=== PATIENT | female | born 1990 | race Caucasian/White ===

== ENCOUNTER 2016-05-05 04:38 | Inpatient (IN) | payer OTHER ==
--- OUTSIDE RECORDS SUMMARY | 2016-05-05 04:48 | XMS REPORT | Continuity of Care Document ---
:1990 Author Organization [facility] ([facility]) [place] [address] Phone [phone] Care Team Providers Name Role Phone [phone], Need To Check Primary Care Provider Unavailable Source Comments This disclosure is being made pursuant to the Care Everywhere program, applicable federal and state laws, and may not contain all informaitonavailable regarding this patient.[facility] ([facility]) Active Allergies and Adverse Reactions Allergen Noted Date Severity Reactions Comments Penicillin 07/17/2015 Rash Current Medications Prescription Sig. Disp. Refills Start Date End Date Status HYDROcodone-acetamin Take 1 tablet by 20 tablet 0 07/17/2015 Active ophen 5-325 mg per mouth every 4 hours tablet as needed for Pain. DO NOT EXCEED 3,000 MG ACETAMINOPHEN PER DAY FROM ALL SOURCES ibuprofen 800 mg Take 1 tablet (800 20 tablet 0 07/17/2015 Active tablet mg total) by mouth every 6 hours as needed for Pain. DO NOT EXCEED 3,200 MG IBUPROFEN PER DAY FROM ALL SOURCES chlorhexidine 0.12 % Rinse with 10 ML for 473 mL 0 07/17/2015 Active oral rinse 30 seconds twice daily for 10 days. Swish and spit out excess. Nothing by mouth for 30 minutes. Active Problems Problem Noted Date Dental caries 07/17/2015 Social History Tobacco Use Types Packs/Day Years Used Date Current Every Day Smoker Cigarettes 0.5 6 Alcohol Use Drinks/Week oz/Week Comments Yes social occassions Last Filed Vital Signs Vital Sign Reading Time Taken Blood Pressure 120/65 07/17/2015 11:43 AM CDT Pulse 60 07/17/2015 11:43 AM CDT Temperature 36.7 C (98.1 F) 07/17/2015 10:47 AM CDT Respiratory Rate 22 07/17/2015 10:47 AM CDT Height 1.651 m (5' 5") 07/17/2015 10:47 AM CDT Weight 98 kg (216 lb 0.8 oz) 07/17/2015 10:47 AM CDT Body Mass Index 35.95 07/17/2015 10:47 AM CDT Oxygen Saturation 100% 07/17/2015 11:43 AM CDT Plan of Care Health Maintenance Due Date Last Done Comments Hepatitis B Vaccine (1 of 3 - Primary Series) 1990 HPV Vaccine (1 of 3 - Female/Unknown 3 Dose Series) 2001 Tdap Vaccine 2001 Cervical Cancer Screening 2008 Lipid Disorder Screening 2008 MMR Vaccine 2008 Td Vaccine 2008 Varicella Vaccine (1 of 2 - Adult - No Evidence of 2008 Immunity) Pneumococcal Vaccine (1 of 1 - PPSV23) 2009 Influenza Vaccine: Seasonal (#1) 09/15/2015 Results from Last 3 Months Not on file
[2016-05-05] MEDS ORDERED: DEXTROSE 5%-LACTATED RINGERS 1,000 ML IV PRN (04:58)
[2016-05-05] MEDS ORDERED: OXYTOCIN/DEXTROSE 5%-WATER 30 UNITS/500 ML BAG IV ONE ×2 (04:58→06:08)
[2016-05-05] MEDS ORDERED: LIDOCAINE HCL 50 ML VIAL PERI PRN (04:58)
--- OUTSIDE RECORDS SUMMARY | 2016-05-05 05:04 | XMS REPORT | Continuity of Care Document ---
:1990 Author Organization [facility] ([facility]) [place] [address] Phone [phone] Care Team Providers Name Role Phone [phone], Need To Check Primary Care Provider Unavailable Source Comments This disclosure is being made pursuant to the Care Everywhere program, applicable federal and state laws, and may not contain all informaitonavailable regarding this patient.[facility] ([facility]) Active Allergies and Adverse Reactions Allergen [...]
--- NOTE | 2016-05-05 06:03 | OR ---
Operative Report - Dictated Report Narrative: Spontaneous vaginal delivery of viable female at 0532 on 05/05/2016 in WOODY position with Apgars 9 and 9, weighing 2999 g with shoulder and body cord 1. Cord clamping delayed 1 minute. Placenta delivered complete, intact, with three vessel cord Estimated blood loss: 100 mL Lacerations: Second-degree vaginal laceration repaired with 3-0 Vicryl Rapide under local anesthesia using a total of 10 mL of 1% lidocaine plain. History for MU Definition: * The number of deliveries resulting in a live the patient experienced prior to current hospitalization * The previous delivery of live twins or any live multiple gestation is considered one live event. *If primagravida or nulliparous is documented select zero for the number of previous live births. Live Events: 1
[2016-05-05] MEDS ORDERED: BENZOCAINE/MENTHOL 81 SPRAY CAN TP PRN (06:08)
[2016-05-05] MEDS ORDERED: oxyCODONE HCL/ACETAMINOPHEN 1 TAB TABLET PO PRN ×2 (06:08)
[2016-05-05] MEDS ORDERED: BISACODYL 10 MG SUPP.RECT RC PRN (06:08)
[2016-05-05] MEDS ORDERED: HYDROCORTISONE 30 APPL TUBE TP PRN (06:08)
[2016-05-05] MEDS ORDERED: GLYCERIN/WITCH HAZEL LEAF 40 APPL BOX TP PRN (06:08)
[2016-05-05] MEDS ORDERED: SENNOSIDES 8.6 MG TABLET PO PRN (06:08)
[2016-05-05] MEDS ORDERED: IBUPROFEN 800 MG TABLET PO PRN (06:08)
--- NOTE | 2016-05-05 06:35 | HP ---
Chief Complaint - Chief Complaint Date of Service: 05/05/16 Time of Service: 06:09 Chief Complaint: contractions, "my water broke" History of Present Illness: 25-year-old 2 para 1001 patient of [facility] at 38-3/7 weeks presents to [facility] birthplace via ambulance complaining of painful contractions and ruptured membranes which occurred around 0410 this a.m. Upon arrival she was noted to be dilated 6-7/90/-1, betzaida every 1-2 minutes with gross rupture of membranes-clear fluid. GBS negative, Rh+, rubella immune - Patient's Past Medical History Patient History - Medical: No pertinent hx Patient History - Cardiac/Respiratory: No pertinent hx Patient History - Cancer: No Hx of Cancer Patient History - Surgical Procedures: Cholecystectomy, T & A, Orthopedic - r ankle - closed reduction Patient History - Other: None LMP (females 10-50): unknown, EDC by 1st trimester u/s - Family History Family History:: no untoward family reactions to anesthesia, no familial bleeding tendencies, no family history of clotting disorders, no family history of premature - Social History Living Situations: spouse Abuse History: No History of abuse Psych History: No pertinent hx Does anyone smoke in the home?: Yes Smoking Status: Current every day smoker Cigarettes Packs Per Day: 10 Have you smoked in the past 12 months: Yes Do you dip or chew tobacco: No Patient requests Smoking Cessation Consult: No Initiate information on Smoking Cessation: Yes Alcohol Use: occasionally - not during Drug Use: none - Immunizations Immunizations Up to Date: Yes Hx Pneumococcal Vaccination: No History of Influenza Vaccine: Yes Review Of Systems (GEN) - Review of Systems EENTM: Present: No Symptoms Reported Respiratory: Present: No Symptoms Reported Cardiac: Present: No Symptoms Reported Abdominal: Present: Other - contractions Genitourinary: Present: Other - SROM 0410 Musculoskeletal: Present: No Symptoms Reported Neurological: Present: No Symptoms Reported Skin: Present: No Symptoms Reported Endocrine: Present: No Symptoms Reported Allergies/Adverse Reactions: Allergies Allergy/AdvReac Type Severity Reaction Status Date / Time amoxicillin Allergy Verified 05/05/16 05:15 penicillin G Allergy Verified 05/05/16 05:15 Home Medications: HOME MEDICATIONS Vit#96/Ferrous Fum/FA [ S] 1 tab PO DAILY 04/26/16 [Last Taken 05/04/16 09:00] Exam - Exam Vital Signs: Blood pressure 125/82, pulse 79, respiration 20, O2 saturation 100%, temp 37.2 Celsius Constitutional: Present: Alert, Oriented x3, Cooperative, Moderate distress ENT Exam: Present: hearing grossly normal Back Exam: Present: no CVA tenderness Breasts: Present: Exam deferred Respiratory: Present: no respiratory distress Cardiovascular/Chest: Present: normal peripheral pulses, regular rate, rhythm, no edema Abdomen: Present: no rebound tenderness, obese, other - gravid, uterine contractions palpate strong /Rectal: Present: Other - cervix 6-7/90/-1 per nurse upon arrival with gross ROM - clear fluid Skin Exam: Present: normal color, warm/dry, no cyanosis Neurologic: Present: oriented x 3 Appearance: Present: no memory impairment, disheveled Eye contact: Present: cooperative, good eye contact, increased rate of speech Thoughts: Present: normal thought pattern, normal mood /affect Diagnostic Studies: NST - reactive Assessment/Plan - Assessment/Plan (1) Normal delivery at term Assessment: Patient in active labor, desiring to go natural. We'll admit with routine orders. Problem: Acute
[2016-05-05] MEDS: DOCUSATE SODIUM 100 MG CAPSULE PO SCH ×2 (10:56→20:20)
--- NOTE | 2016-05-06 12:47 | PN ---
Subjective - Date and Time Seen Date: 05/06/16 Time: 12:47 Objective - Vitals Vitals: Last Vital Signs Temp 36.3 C L 05/06/16 08:13 Pulse 82 05/06/16 08:13 Resp 16 05/06/16 08:13 BP 107/66 05/06/16 08:13 Pulse Ox 100 05/06/16 08:13 Patient denies complaints. Lochia wnl Abdomen - soft, nontender Uterus - firm, at umbilicus - 1 No calf tenderness Impression: day #1 - s/p spontaneous vaginal delivery. Plan: Continue routine care Assessment/Plan - Problems/Diagnosis (1) Normal delivery at term Problem: Acute
[2016-05-06] MEDS: DOCUSATE SODIUM 100 MG CAPSULE PO SCH ×2 (13:10→20:34)
[2016-05-07 08:06] VITALS: BP 131/76
[2016-05-07] MEDS: DOCUSATE SODIUM 100 MG CAPSULE PO SCH (08:07)
--- NOTE | 2016-05-07 08:50 | PN ---
Progess Note - Interim Narrative: 05/07/16 08:49 progress note Subjective: The patient is doing well. She is ambulating, voiding, tolerating by mouth. She has minimal pain and moderate lochia. Objective: General: No acute distress Abdomen: Soft, nontender, fundus is firm just below the umbilicus Extremities: minimal edema, nontender to palpation Assessment and plan: day 2 Feeding: bottle Pain: Controlled with by mouth medication control: desires permanent sterilization Routine care. D/C home today, FU with her provider in [place].
== END 2016-05-07 11:10 | disposition home or self-care (01) | DRG 775 ==
LOC: OBCLINIC 04:38 → OB 04:55
PROVIDERS: ADMIT Obstetrics & Gynecology; ATTEND Obstetrics & Gynecology
PROC: 10E0XZZ Delivery of Products of Conception, External Approach (ICD-10-PCS; principal; 2016-05-05)
PROC: 0KQM0ZZ Repair Perineum Muscle, Open Approach (ICD-10-PCS; 2016-05-05)
PROC: 4A1HXCZ Monitoring of Products of Conception, Cardiac Rate, External Approach (ICD-10-PCS; 2016-05-05)
DX: O69.81X0 Labor and delivery complicated by cord around neck, without compression, not applicable or unspecified (principal); O70.1 Second degree perineal laceration during delivery; O99.334 Smoking (tobacco) complicating childbirth; Z3A.38 38 weeks gestation of pregnancy; Z37.0 Single live birth